=== PATIENT | female | born 1940 | race Caucasian/White ===

== ENCOUNTER → 2019-01-02 | Outpatient (CLI) | payer OTHER ==
[2019-01-02 16:19] LABS: Appearance, Urine Cloudy (Clear); Bilirubin, Urine Neg (Neg); Blood, Urine 3+ (Neg); Color, Urine Yellow (P-Yellow); Glucose Qualitative, Urine Neg (Neg); Ketones, Urine Neg (Neg); Leukocyte Esterase, Urine 3+ (Neg); Nitrite, Urine Neg (Neg); Protein, Urine 2+ (Neg); Specific Gravity, Urine 1.015 (1.003-1.022); Urobilinogen, Urine NORM (Normal)
[2019-01-02 16:46] LABS: White Blood Cells, Urine TNTC /hpf (0-5)
[2019-01-02 16:47] LABS: Bacteria Many /hpf; Squamous Epithelial Cells Few /hpf (Few)
== END | disposition home or self-care (01) ==
LOC: LAB 16:08 → LAB SHORT 16:08
PROVIDERS: Registered Nurse
DX: R30.9 Painful micturition, unspecified (principal)
CPT/HCPCS: 81001; 87077; 87086; 87186

== ENCOUNTER → 2019-08-23 | Outpatient (CLI) | payer OTHER | LOC: LAB EV 10:15 → LAB SHORT 10:15 | DX: R82.90 Unspecified abnormal findings in urine (principal) | CPT/HCPCS: 87077; 87086; 87186 ==

== ENCOUNTER → 2020-01-01 | Outpatient (CLI) | payer OTHER ==
[2020-01-01 15:29] LABS: Bilirubin, Urine Neg (Neg); Blood, Urine 1+ (Neg); Glucose Qualitative, Urine Neg (Neg); Ketones, Urine Neg (Neg); Leukocyte Esterase, Urine 2+ (Neg); Nitrite, Urine Neg (Neg); Protein, Urine Neg (Neg); Urobilinogen, Urine NORM (Normal)
[2020-01-01 15:49] LABS: Appearance, Urine Hazy (Clear); Color, Urine Yellow (P-Yellow)
[2020-01-01 15:50] LABS: Bacteria Many /hpf; Red Blood Cells, Urine 0-2 /hpf (0-2); Squamous Epithelial Cells Many /hpf (Few)
== END | disposition home or self-care (01) ==
LOC: LAB 13:07 → LAB SHORT 13:07
PROVIDERS: Family Medicine
DX: R35.0 Frequency of micturition (principal)
CPT/HCPCS: 81001

== ENCOUNTER → 2020-10-14 | Outpatient (CLI) | payer OTHER ==
[~2020-10-14] MED LIST: AMLODIPINE BESYL5 MG PO; ATOR10 PO; AZIT500 PO; BUSPIRONE HCL7.5 MG PO; CEFD300 PO; CIPR500 PO; FUROSEMIDE20 MG PO; HYDROCODONE-AC1 EAC7 PO; KLOR-CON 1010 MEQ PO; LOSARTAN POTAS100 MG PO; METOPROLOL TART25 MG PO; NEURONTIN300 MG PO; Nitrofurantoin100 M1 PO; OMEP20ER PO; TRAZ50 PO; ZOLOFT50 MG PO
[2020-10-14 11:55] LABS: Source, Urine Clean Catch
[2020-10-14 12:46] LABS: Leukocyte Esterase, Urine 1+ (Neg)
[2020-10-14 12:47] LABS: Appearance, Urine Hazy (Clear); Bacteria Many /hpf; Bilirubin, Urine Neg (Neg); Blood, Urine Neg (Neg); Color, Urine Yellow (P-Yellow); Glucose Qualitative, Urine Neg (Normal); Ketones, Urine Neg (Neg); Nitrite, Urine Neg (Neg); Protein, Urine Neg (Neg); Red Blood Cells, Urine Not Seen /hpf (0-2); Renal Epithelial Rare /hpf (0-Rare); Squamous Epithelial Cells Many /hpf (Few); Transitional Epithelial Cells Rare /hpf (0-Rare); Urobilinogen, Urine NORM (Normal)
== END | disposition home or self-care (01) ==
LOC: PLD 11:30
PROVIDERS: Family Medicine
DX: N39.0 Urinary tract infection, site not specified (principal)
CPT/HCPCS: 81001; 87086

== ENCOUNTER 2021-02-02 18:16 | Emergency (ER) | payer OTHER ==
[~2021-02-02] VITALS: Ht 172.7 cm; Wt 81.7 kg
[~2021-02-02 18:16] MED LIST changes: -CIPR500 PO
[2021-02-02 18:59] LABS: Source, Urine Clean Catch
[2021-02-02 19:03] LABS: Appearance, Urine Clear (Clear); Bilirubin, Urine Neg (Neg); Blood, Urine 1+ (Neg); Color, Urine Yellow (P-Yellow); Glucose Qualitative, Urine Neg (Neg); Ketones, Urine Neg (Neg); Leukocyte Esterase, Urine 1+ (Neg); Nitrite, Urine Neg (Neg); Protein, Urine 2+ (Neg); Urobilinogen, Urine NORM (Normal)
[2021-02-02 19:05] LABS: BASOPHILS ABSOLUTE AUTO 0.08 K/mm3 (0.00-0.23); BASOPHILS PERCENT AUTO 1 % (0-2); EOSINOPHILS ABSOLUTE AUTO 0.16 K/mm3 (0.00-0.68); EOSINOPHILS PERCENT AUTO 2 % (0-6); Hematocrit 47.7 % (33.0-51.0); Hemoglobin 16.3 g/dL (11.5-16.0); IMMATURE GRAN ABSOLUTE AUTO 0.03 K/mm3 (0.00-0.10); IMMATURE GRAN PERCENT AUTO 0 % (0-1); LYMPHOCYTES ABSOLUTE AUTO 1.29 K/mm3 (0.84-5.20); LYMPHOCYTES PERCENT AUTO 15 % (21-46); MONOCYTES ABSOLUTE AUTO 0.96 K/mm3 (0.16-1.47); MONOCYTES PERCENT AUTO 11 % (4-13); Mean Corpuscular HGB 31.2 pg (26.0-34.0); Mean Corpuscular HGB Conc 34.2 g/dL (31.5-36.5); Mean Corpuscular Volume 91 fL (80-100); Mean Platelet Volume 9.5 fL (9.1-12.4); NEUTROPHILS ABSOLUTE AUTO 6.21 K/mm3 (1.96-9.15); NEUTROPHILS PERCENT AUTO 71 % (41-73); Platelet Count 243 K/mm3 (150-400); RDW Coefficient Variation 13.1 % (11.7-14.2); RDW Standard Deviation 43.9 fL (35.1-46.3); Red Blood Cell Count 5.23 M/mm3 (3.80-5.20); White Blood Cell Count 8.73 K/mm3 (4.00-11.30)
[2021-02-02 19:09] LABS: Bacteria Mod /hpf; Squamous Epithelial Cells Few /hpf (Few)
[2021-02-02 19:21] LABS: Alanine Aminotransfer (ALT/SGP 24 U/L (12-78); Albumin, Blood 3.9 g/dL (3.4-5.0); Albumin/Globulin Ratio 0.8 (0.8-1.8); Alk Phos 73 U/L (50-136); Anion Gap 8 mmol/L (6-16); Aspartate Aminotrans (AST/SGOT 19 U/L (12-37); Bilirubin, Total 0.8 mg/dL (0.1-1.0); Blood Urea Nitrogen 14 mg/dL (8-24); Bun/Creatinine Ratio 21.2 (12.0-20.0); CO2, Blood 27 mmol/L (21-32); Calcium, Blood 9.4 mg/dL (8.5-10.1); Chloride, Blood 102 mmol/L (98-108); Creatinine, Blood 0.66 mg/dL (0.40-1.00); Globulin, Blood 4.6 g/dL (2.2-4.0); Glomerular Filtration Rate >60 (60-); Glucose, Blood 117 mg/dL (70-99); Potassium, Blood 3.8 mmol/L (3.5-5.5); Sodium, Blood 137 mmol/L (136-145); Total Protein, Blood 8.5 g/dL (6.4-8.2)
[2021-02-02] MEDS ORDERED: CIPR500 PO (19:52)
== END 2021-02-02 21:28 | disposition home or self-care (01) ==
LOC: ER 18:16
PROVIDERS: Emergency Medicine
DX: N39.0 Urinary tract infection, site not specified (principal); R55 Syncope and collapse; I11.0 Hypertensive heart disease with heart failure; I50.9 Heart failure, unspecified; E78.00 Pure hypercholesterolemia, unspecified; I25.10 Atherosclerotic heart disease of native coronary artery without angina pectoris; Z79.899 Other long term (current) drug therapy; Z88.0 Allergy status to penicillin; Z88.8 Allergy status to other drugs, medicaments and biological substances
CPT/HCPCS: 71046; 80053; 81001; 85025; 87077; 87086; 87186; 93005; 93010; 99284-25; A9270

== ENCOUNTER → 2021-02-24 | Outpatient (CLI) | payer OTHER ==
[~2021-02-24] MED LIST changes: +CIPR500 PO
== END ==
LOC: LAB SHORT 17:38
DX: L92.3 Foreign body granuloma of the skin and subcutaneous tissue (principal); Z71.89 Other specified counseling; B95.62 Methicillin resistant Staphylococcus aureus infection as the cause of diseases classified elsewhere; Z88.0 Allergy status to penicillin; Z88.8 Allergy status to other drugs, medicaments and biological substances
CPT/HCPCS: 87070; 87077; 87147; 87186; 87205

== ENCOUNTER → 2021-11-23 | Outpatient (CLI) | payer OTHER | END | disposition home or self-care (01) | LOC: LAB SHORT 12:40 | DX: R35.0 Frequency of micturition (principal) | CPT/HCPCS: 87086 ==

== ENCOUNTER → 2022-01-31 | Outpatient (CLI) | payer OTHER | END | disposition home or self-care (01) | LOC: LAB 10:59 → LAB SHORT 10:59 | DX: N39.0 Urinary tract infection, site not specified (principal) | CPT/HCPCS: 87086 ==

== ENCOUNTER → 2022-10-25 | Outpatient (CLI) | payer OTHER | LOC: LAB SHORT 12:10 → LAB 12:10 | DX: R30.0 Dysuria (principal) | CPT/HCPCS: 87086 ==

== ENCOUNTER 2023-05-28 15:06 | Inpatient (IN) | payer OTHER ==
[~2023-05-28] VITALS: Ht 170.2 cm; Wt 86.3 kg
[2023-05-28 15:33] LABS: BASOPHILS ABSOLUTE AUTO 0.05 K/mm3 (0.00-0.23); BASOPHILS PERCENT AUTO 0 % (0-2); EOSINOPHILS ABSOLUTE AUTO 0.07 K/mm3 (0.00-0.68); EOSINOPHILS PERCENT AUTO 1 % (0-6); Hematocrit 43.1 % (33.0-51.0); Hemoglobin 14.7 g/dL (11.5-16.0); IMMATURE GRAN ABSOLUTE AUTO 0.08 K/mm3 (0.00-0.10); IMMATURE GRAN PERCENT AUTO 1 % (0-1); LYMPHOCYTES ABSOLUTE AUTO 0.39 K/mm3 (0.84-5.20); LYMPHOCYTES PERCENT AUTO 3 % (21-46); MONOCYTES ABSOLUTE AUTO 1.51 K/mm3 (0.16-1.47); MONOCYTES PERCENT AUTO 11 % (4-13); Mean Corpuscular HGB 30.8 pg (26.0-34.0); Mean Corpuscular HGB Conc 34.1 g/dL (31.5-36.5); Mean Corpuscular Volume 90 fL (80-100); Mean Platelet Volume 10.7 fL (9.1-12.4); NEUTROPHILS ABSOLUTE AUTO 11.83 K/mm3 (1.96-9.15); NEUTROPHILS PERCENT AUTO 85 % (41-73); Platelet Count 235 K/mm3 (150-400); RDW Coefficient Variation 14.8 % (11.7-14.2); RDW Standard Deviation 49.5 fL (35.1-46.3); Red Blood Cell Count 4.77 M/mm3 (3.80-5.20); White Blood Cell Count 13.93 K/mm3 (4.00-11.30)
[2023-05-28 15:52] LABS: Albumin, Blood 3.4 g/dL (3.4-5.0); Albumin/Globulin Ratio 0.8 (0.8-1.8); Bilirubin, Total 0.9 mg/dL (0.1-1.0); Bun/Creatinine Ratio 36.2 (12.0-20.0); Calcium, Blood 9.8 mg/dL (8.5-10.1); Creatinine, Blood 1.05 mg/dL (0.40-1.00); Globulin, Blood 4.5 g/dL (2.2-4.0); Total Protein, Blood 7.9 g/dL (6.4-8.2)
[2023-05-28 17:27] LABS: Source, Urine Straight Cath
[2023-05-28 17:35] LABS: Appearance, Urine Hazy (Clear); Bilirubin, Urine Neg (Neg); Blood, Urine 3+ (Neg); Color, Urine Yellow (P-Yellow); Glucose Qualitative, Urine Neg (Neg); Ketones, Urine 2+ (Neg); Leukocyte Esterase, Urine 1+ (Neg); Nitrite, Urine Pos (Neg); Protein, Urine 2+ (Neg); Specific Gravity, Urine 1.015 (1.003-1.022); Urobilinogen, Urine NORM (Normal)
[2023-05-28 18:16] LABS: Bacteria Many /hpf; Hyaline Casts 0-2 /lpf (0-2); Squamous Epithelial Cells Mod /hpf (Few); Transitional Epithelial Cells Rare /hpf (0-Rare); White Blood Cells, Urine 25-50 /hpf (0-5)
[2023-05-28] MEDS ORDERED: ZYRTEC10 M2 PO (20:07)
[2023-05-28 20:57] VITALS: BP 182/30
[2023-05-28 21:09] VITALS: BP 150/85
--- NOTE | 2023-05-28 23:29 | NUR ---
NOTIFIED BY DEPUTY REGISTER OF DEEDS THAT PT HAD BRIEF SECOND DEGREE HB @ 48 BPM. PT ASYMPTOMATIC DENIES CP/DISCOMFORT SOB. HOSPITALIST NOTIFIED AND INSTRUCTIONS GIVEN TO CONTINUE MONITORING AND IF IT REOCCURS AND IT SUSTAINED TO ORDER CARDIOLOGY CONSULT FOR TOMORROW.
--- NOTE | 2023-05-29 00:08 | NUR ---
NOTIFIED BY JOB SITE SUPERVISOR THAT PT IS SUSTAINING 2ND DEGREE HB TYPE 2 HR IN 50'S. PT REMAINS ASYMPTOMATIC. CARDIOLOGY CONSULT PUT IN PER DR SEGURA PRIOR INSTRUCTIONS. DR SANTANA NOTIFIED AND INSTRUCTIONS GIVEN TO CONTINUE MONITORING FOR CHANGE IN PT CONDITION.
[2023-05-29 01:10] VITALS: BP 169/47
--- NOTE | 2023-05-29 01:36 | NUR ---
NOTIFIED BY PCU SEWING TEACHER THAT PT MAINTAINING SECOND DEGREE HB TYPE 2 AND HR IS DROPPING INTO LOW TO MID 30'S AT TIMES AND PT MORE APPROPRIATE FOR PCU FOR CLOSER OBSERVATION. HOSPITALIST NOTIFIED AND AGREED WITH ASSESSMENT AND TRANSFER ORDER PLACED TO TRANSFER PT TO PCU. PT TRANSFERRED TO PCU WITH SEWING TEACHER @ 0110 AND REPORT GIVEN TO PCU NURSE TO ASSUME CARE OF PT. PT HAD NO BELONGINGS. FAMILY NOTIFIED OF CHANGE OF ROOM.
[2023-05-29 03:00] VITALS: BP 144/36
[2023-05-29 04:30] LABS: BASOPHILS ABSOLUTE AUTO 0.07 K/mm3 (0.00-0.23); BASOPHILS PERCENT AUTO 1 % (0-2); EOSINOPHILS ABSOLUTE AUTO 0.34 K/mm3 (0.00-0.68); EOSINOPHILS PERCENT AUTO 3 % (0-6); Hematocrit 40.4 % (33.0-51.0); Hemoglobin 13.7 g/dL (11.5-16.0); IMMATURE GRAN ABSOLUTE AUTO 0.05 K/mm3 (0.00-0.10); IMMATURE GRAN PERCENT AUTO 1 % (0-1); LYMPHOCYTES ABSOLUTE AUTO 0.55 K/mm3 (0.84-5.20); LYMPHOCYTES PERCENT AUTO 5 % (21-46); MONOCYTES PERCENT AUTO 18 % (4-13); Mean Corpuscular HGB Conc 33.9 g/dL (31.5-36.5); Mean Corpuscular Volume 91 fL (80-100); Mean Platelet Volume 10.5 fL (9.1-12.4); NEUTROPHILS ABSOLUTE AUTO 7.67 K/mm3 (1.96-9.15); NEUTROPHILS PERCENT AUTO 72 % (41-73); Platelet Count 199 K/mm3 (150-400); RDW Coefficient Variation 15.1 % (11.7-14.2); RDW Standard Deviation 50.5 fL (35.1-46.3); Red Blood Cell Count 4.42 M/mm3 (3.80-5.20); White Blood Cell Count 10.58 K/mm3 (4.00-11.30)
[2023-05-29 04:51] LABS: Albumin, Blood 2.9 g/dL (3.4-5.0); Albumin/Globulin Ratio 0.7 (0.8-1.8); Bun/Creatinine Ratio 46.7 (12.0-20.0); Calcium, Blood 9.3 mg/dL (8.5-10.1); Creatinine, Blood 0.73 mg/dL (0.40-1.00); Globulin, Blood 4.1 g/dL (2.2-4.0); Magnesium, Blood 1.8 mg/dL (1.6-2.4); Potassium, Blood 3.6 mmol/L (3.5-5.5)
--- NOTE | 2023-05-29 06:45 | NUR ---
Transfer/ End of shift note. Pt transferred from Medical to U4 at approx. 0100. Pt had noted 2nd Degree heart block with HR in the 30s. Pt has been asymptomatic. Pt has had waxing mentation. Pt is A/O x2-3. Some refusals of care and irritation. Medical RN notified family of transfer. phoned at 0330 to notify of increase in wheezing. IVF dc'd. also notified of multiple runs of V tach, Pt asymptomatic. PRN EKG was completed this am
[2023-05-29 08:40] VITALS: BP 136/46
--- NOTE | 2023-05-29 11:14 | NUR ---
MRI SCREENING: Form completed over the phone with patient's daugter (POA) and sent to MRI department.
[2023-05-29 12:25] VITALS: BP 152/32
--- NOTE | 2023-05-29 13:25 | NUR ---
PROVIDER PHONE CALL: Dr Metcalf notified of pt's minimal UOP from purewick as well as NPO status. See new orders.
[2023-05-29] MEDS ORDERED: TRIDERM28.4 GM TOP (13:56)
[2023-05-29] MEDS ORDERED: METO25 PO (13:57)
[2023-05-29] MEDS ORDERED: ATOR10 PO (13:57)
[2023-05-29] MEDS ORDERED: SERT50 PO (13:57)
--- NOTE | 2023-05-29 14:49 | NUR ---
Met with pt's daughter Claudia at bedside. We then talked privately, and Claudia reports, "That's not my mother", regarding pt's current mental and physical status. She states the pt lives alone with only a director of casework department caregiver. However, today the pt is unable to recognize or recall her daughter's name, or get OOB unassisted. Claudia brought pt's advance directive which expresses she would not want tube feedings or ventilator support to artificially sustain her life. Clauida is pt's POA, and she requested we change her code status to DNR. Received t/o for this from Dr. Metcalf. Claudia also states her mom would not want to live in this state, but also realizes it's too soon to make any finalized decision, and plans to return tomorrow to check in with Dr. Metcalf and pt. Palliative care will remain available.
[2023-05-29 14:53] LABS: U Amphetamine Screen Not Detected; U Barbituate Screen Not Detected; U Benzodiazapine Screen Not Detected; U Buprenorphine Screen Not Detected; U Cannabinoids Screen Not Detected; U Cocaine Screen Not Detected; U Methadone Screen Not Detected; U Methamphetamine Screen Not Detected; U Opiates Screen Not Detected; U Oxycodone Screen Not Detected; U Phencyclidine Screen Not Detected; U Propoxyphene Screen Not Detected
--- NOTE | 2023-05-29 15:02 | NUR ---
PT TO MRI: on stretcher with transportation logistics internship. tele and spO2 monitoring temporarily discontinued for test. DNR wristband applied right wrist prior to transport
--- NOTE | 2023-05-29 15:25 | NUR ---
PT BACK FROM MRI
[2023-05-29 15:54] VITALS: BP 155/36
--- NOTE | 2023-05-29 18:07 | NUR ---
SHIFT SUMMARY: Pt more alert and responsive this afternoon. She is still confused and oriented only to self. MRI completed today. Daughter at bedside; code status changed to DNR. IVF restarted due to UOP of 30 mls today.
[2023-05-29 20:00] VITALS: BP 154/43
[2023-05-30] VITALS (7 sets, daily range): BP systolic 155–176; BP diastolic 33–42
--- NOTE | 2023-05-30 06:13 | NUR ---
SHIFT SUMMARY PT REMAINS A&O X2; TO SELF AND PERSON. PT UNABLE TO ANSWER OTHER ORIENTATION QUESTIONS. PT SPEECH GARBLED AT TIMES OR INCOHERENT OR DO NOT MAKE SENSE TO WHAT IS BEING ASKED. EXPRESSIVE APHASIA PRESENT. Q4 NEURO CHECKS UNCHANGED FROM INITIAL ASSESSMENT. PT PUPILS SLUGGISH, PT NOT TRACKING. PT DOES FOLLOW MOST COMMANDS. STRENGTH INTACT BLE AND BUE, ALTHOUGH IS WEAKENED. VSS; ALTHOUGH OF NOTE SBP ELEVATED SOME AT 150 - 160'S. HR REMAINS 40 - 50'S W/2 DEGREE HB TYPE II. PT DENIES SYMPTOMS. PT REMAINS ON RA, SPO2 95%; DENIES SOB, NO DIFFICULTY BREATHING NOTED. THIS RN DOES NOT IRREGULAR, SHALLOW BREATHING. PT RESTED ON AND OFF THROUGOUT SHIFT. PT REPOSITIONED Q2 OR PRN, ATTENDS CHANGED Q2 OR PRN. PUREWICK ALSO IN PLACE. NO BM THIS SHIFT. PT DOES NOT USE CALL LIGHT AND NOT ALWAYS ABLE TO MAKE NEEDS KNOWN. ROUNDING COMPLETED TO ENSURE NEEDS MET. LR INFUSING PER EMAR. REDDENED AREA ON COCCYX AREA, MEPILEX CHANGED AND IN PLACE THIS SHIFT. ORAL CARE ATTEMPTED, PT BECAME IRRITATED AND DECLINED. EDUCATION PROVIDED ON IMPORTANCE, PT STILL DECLINED. WILL UPDATE ONCOMING RN
[2023-05-30 06:35] LABS: BASOPHILS ABSOLUTE AUTO 0.08 K/mm3 (0.00-0.23); BASOPHILS PERCENT AUTO 1 % (0-2); EOSINOPHILS ABSOLUTE AUTO 0.34 K/mm3 (0.00-0.68); EOSINOPHILS PERCENT AUTO 5 % (0-6); Hematocrit 34.9 % (33.0-51.0); Hemoglobin 11.9 g/dL (11.5-16.0); IMMATURE GRAN ABSOLUTE AUTO 0.03 K/mm3 (0.00-0.10); IMMATURE GRAN PERCENT AUTO 0 % (0-1); LYMPHOCYTES ABSOLUTE AUTO 0.59 K/mm3 (0.84-5.20); LYMPHOCYTES PERCENT AUTO 8 % (21-46); MONOCYTES ABSOLUTE AUTO 1.56 K/mm3 (0.16-1.47); MONOCYTES PERCENT AUTO 21 % (4-13); Mean Corpuscular HGB 31.2 pg (26.0-34.0); Mean Corpuscular HGB Conc 34.1 g/dL (31.5-36.5); Mean Corpuscular Volume 91 fL (80-100); Mean Platelet Volume 10.9 fL (9.1-12.4); NEUTROPHILS ABSOLUTE AUTO 4.88 K/mm3 (1.96-9.15); NEUTROPHILS PERCENT AUTO 65 % (41-73); Platelet Count 190 K/mm3 (150-400); RDW Coefficient Variation 15.3 % (11.7-14.2); RDW Standard Deviation 51.3 fL (35.1-46.3); Red Blood Cell Count 3.82 M/mm3 (3.80-5.20); White Blood Cell Count 7.48 K/mm3 (4.00-11.30)
[2023-05-30 07:14] LABS: Albumin, Blood 2.4 g/dL (3.4-5.0); Albumin/Globulin Ratio 0.7 (0.8-1.8); Bilirubin, Total 0.9 mg/dL (0.1-1.0); Bun/Creatinine Ratio 46.9 (12.0-20.0); Calcium, Blood 8.9 mg/dL (8.5-10.1); Creatinine, Blood 0.7 mg/dL (0.40-1.00); Globulin, Blood 3.5 g/dL (2.2-4.0); Potassium, Blood 3.6 mmol/L (3.5-5.5); Total Protein, Blood 5.9 g/dL (6.4-8.2)
--- NOTE | 2023-05-30 11:04 | NUR ---
AM NOTE: PATIENT ALERT TO SELF AND FAMILY. ABLE TO TELL ME FIRST NAME. WORD SALAD AND EXPRESSICE APHASIA. PATIENT GETTING FRUSTERATED WITH WORDS NOT COMING OUT RIGHT. PUPILS EQUAL AND REACTIVE. NOT ABLE TO FOLLOW COMMANDS TO TRACK FINGER. NO FACIAL DROOP NOTED THIS AM. FOLLOWING COMMANDS TO OPEN MOUTH, STICK TONGUE OUT, SMILE AND RAISE EYEBROWS. DENIES NUMBNESS/TINGLING. FOLLOWING SIMPLE COMMANDS SUCH SQUEEZING HANDS, AND WIGGLING TOES. PATIENT FRUSTERATED WITH MOST CARES AND CONSTANTLY SAYING NO THIS AM. SPEECH THERAPY ATTEMPTED TO SEE EARLY THIS AM, PATIENT NOT COOPERATIVE. SPEECH ABLE TO COME BACK AND PATIENT COOPERATIVE WITH FAMILY AT BEDSIDE. SEE SPEECH ORDERS. ABLE TO TAKE MEDS CRUSHED IN APPLESAUCE. PT/OT ORDERS IN PLACE. ON ROOM AIR SATING MID-HIGH 90'S. EVEN BREATHING. RR 20-24. LUNGS SOUNDING CLEAR AND DIM IN BASES. TELE SHOWING 2ND DEGREE AV BLOCK. PATIENT IN 3RD DEGREE HEART BLOCK FOR [address] ALEXANDRE CALLED AND UPDATED. DENIES CHEST PAIN/PRESSURE/PALPITATIONS. BP STABLE. HR 40-50'S. ON LR INFUSING PER EMAR. POWERGLIDE PLACED TO LEFT UPPER ARM. BOWEL TONES PRESENT. PUREWICK IN PLACE. URINE GINGER IN COLOR. ATTENDS CLEAN AND DRY. POWDER APPLIED TO SKIN FOLDS AND UNDER BREASTS. DR. ALEXANDRE IN TO DISCUSS PLAN OF CARE WITH FAMILY AND PALLIATIVE CARE. DAUGHTER AND GRANDDAUGHTER REMAIN AT BEDSIDE. Q2 TURNING. CALL LIGHT IN REACH.
--- NOTE | 2023-05-30 11:48 | NUR ---
AFTERNOON NEURO REMAINS UNCHANGED FROM THIS AM ASSESSMENT. PLAN TO WORK WITH PT THIS AFTERNOON.
--- NOTE | 2023-05-30 16:46 | NUR ---
SHIFT SUMMARY: SPOKE WITH PHYSICAL THERAPY. PLAN FOR EVAL IN AM. DAUGHTER HERIBERTO CALLED AND UPDATED. NO ACUTE CHANGES. PATIENT REMAINS ALERT TO SELF AND TALKING WITH STAFF. AT TIMES EXPRESSIVE APHASIA. VERY SLIGHT RIGHT FACIAL DROOP NOTED WHEN PATIENT IS SLEEPING. SLEEPING WITH MOUTH OPEN. REMAINS ON ROOM AIR. LESS AGGITATED WITH CARES THROUGHOUT THE DAY. TELE REMAINS 2ND DEGREE AV BLOCK. 3 MIN PERIOD THIS AM OF 3RD DEGREE HB, SEE SAVED STRIPS IN ELECTRONIC CHART. BP REMAINS STABLE. HR 40-60'S. DENIES CHEST PAIN/PRESSURE. ZOLL REMAINS AT BEDSIDE. LR INFUSING PER EMAR. EATING SMALL AMOUNT OF SOFT/PUREE LIKE FOODS, APPLESAUCE, PEAR SAUCE AND PUDDING. DRINKING WATER. PUREWICK IN PLACE AND CHANGED THROUGHOUT SHIFT. MINIMAL URINE OUTPUT OF 100ML AND 1 UNMEASURED VOID. WEARING ATTENDS. MEPILEX COVERING EXCORIATION ON COCCYX. BILATERAL BREAST FOLDS YEASTY AND NEEDING CLEANED/POWDERED THROUGHOUT SHIFT. PILLOW CASE PLACED UNDER RIGHT BREAST TO HELP CONTROL MOISTURE. Q2 TURNING AND NEEDED. BED ALARM IN PLACE. CALL LIGHT IN REACH, PATIENT LISTENING TO MUSIC, SITTING UPRIGHT AT THIS TIME.
--- NOTE | 2023-05-30 21:39 | NUR ---
ASSUMED CARE: Assumed care at 1900. Pt wakes to voice, oriented to self but cannot tell me where she is or why she is here. She is pleasant and cooperative. Mild expressive aphasia noted. Moves all extremities, bilateral leg weakness noted. Drift on R arm, L arm normal strength. She has a Right gaze preference, but was able to look all the way to the left when prompted. Slight R facial droop noted. She is in a 2nd degree type 2 heart block, rates mostly in the 40s-50s. She has a wide pulse pressure, but adequate MAP. She is tachypneic, though she denies shortness of breath. Breath sounds diminished throughout. No ignition policy discussed with patient, though she does not have any possible ignition sources and is not oriented.
[2023-05-31 03:22] VITALS: BP 173/42
[2023-05-31 06:30] LABS: BASOPHILS ABSOLUTE AUTO 0.08 K/mm3 (0.00-0.23); BASOPHILS PERCENT AUTO 1 % (0-2); EOSINOPHILS PERCENT AUTO 6 % (0-6); Hematocrit 35.7 % (33.0-51.0); IMMATURE GRAN ABSOLUTE AUTO 0.02 K/mm3 (0.00-0.10); IMMATURE GRAN PERCENT AUTO 0 % (0-1); LYMPHOCYTES ABSOLUTE AUTO 0.43 K/mm3 (0.84-5.20); LYMPHOCYTES PERCENT AUTO 6 % (21-46); MONOCYTES ABSOLUTE AUTO 1.28 K/mm3 (0.16-1.47); MONOCYTES PERCENT AUTO 18 % (4-13); Mean Corpuscular HGB 30.9 pg (26.0-34.0); Mean Corpuscular HGB Conc 33.6 g/dL (31.5-36.5); Mean Corpuscular Volume 92 fL (80-100); NEUTROPHILS ABSOLUTE AUTO 4.81 K/mm3 (1.96-9.15); NEUTROPHILS PERCENT AUTO 69 % (41-73); Platelet Count 201 K/mm3 (150-400); RDW Coefficient Variation 15.3 % (11.7-14.2); RDW Standard Deviation 51.8 fL (35.1-46.3); Red Blood Cell Count 3.88 M/mm3 (3.80-5.20); White Blood Cell Count 7.02 K/mm3 (4.00-11.30)
--- NOTE | 2023-05-31 06:40 | NUR ---
SHIFT SUMMARY: Neuro status unchanged for most of the night. She slept for several hours at the beginning of the shift, but has been restless for much of the night. She complained of a headache around 0330 and was medicated with tylenol. She went to sleep shortly after taking tylenol and appeared comfortable. At 0500, she was more lethargic than earlier in the night. Still arousable, but more drowsy. Oriented to self only, has to be reoriented frequently to place and situation, but she is pleasant and cooperative.
[2023-05-31 07:01] LABS: Albumin, Blood 2.3 g/dL (3.4-5.0); Albumin/Globulin Ratio 0.6 (0.8-1.8); Bilirubin, Total 0.9 mg/dL (0.1-1.0); Bun/Creatinine Ratio 42.6 (12.0-20.0); Calcium, Blood 8.8 mg/dL (8.5-10.1); Creatinine, Blood 0.61 mg/dL (0.40-1.00); Globulin, Blood 3.6 g/dL (2.2-4.0); Potassium, Blood 3.6 mmol/L (3.5-5.5); Total Protein, Blood 5.9 g/dL (6.4-8.2)
[2023-05-31 07:42] VITALS: BP 181/49
[2023-05-31 09:40] VITALS: BP 151/47
--- NOTE | 2023-05-31 11:35 | NUR ---
Review of pt with Dr Cochran and nursing. Met with daughter and grandaughter to review pt needs. Daughter tearfull from caregiver stress. She relays her mother has not been easy to deal with in her younger years. They understand her prognosis. And have agreed to comfort care. Review with doctor Cochran her medication needs for cardiac care. Discussed with farm or ranch animal caretaker the financial stresses relayed to me by family. Will see placement and assess pt stability for transfer.
--- NOTE | 2023-05-31 15:41 | NUR ---
PT TRANSITIONE TO COMFORT CARE, DAUGHTER WAS ABLE TO DISCUSS PLAN WITH PALLIATIVE CARE THIS MORNING. PT WAS ABLE TO WORK WITH OCCUPATIONAL THERAPY AND SPEECH THERAPIST, REFUSED MEALS OFFERED ENSURE AND WAS ABLE TO FINISH. PT REFUSED CRUSHED MEDS WITH APPLESAUCE. PT WORKED WITH PHYSICAL THERAPIST ABLT TO STAND AND TRANSFER TO RECLINER VIA WALKER 1PA. PUREWICK REMAINED IN PLACE. MEDICATION CHANGES PER PALLIATIVE CARE NURSE. REPORT GIVEN TO WHITLEY WRIGHT FOR TRANSFER OF CARE
--- NOTE | 2023-05-31 16:17 | NUR ---
Review of comfort plan with physcian and nursing. pt continue to decline in her swallow and ability to participate. Medication adjust per physcian orders and comfor care medications started. Goal is to prevent suffering from poor perfussion and air hunger.
--- NOTE | 2023-05-31 18:32 | NUR ---
END OF SHIFT THIS RN IN CARE OF PT SINCE APPROX 154. PT COMFORT CARE, SLEEPING IN RECLINER UPON CARE ASSUMPTION. PT THEN AWAKE, ASSISTED TO BSC & BACK TO BED W/ GB & 2 PERSON MAX ASSIST. PT DENYING PAIN/DISCOMFORT OR FURTHER NEEDS.
--- NOTE | 2023-06-01 04:04 | NUR ---
SHIFT SUMMARY. PT ARRIVED ON UNIT EARLY IN SHIFT. PCU TRANSFER. PT IS AOX2-3, VERY PLEASANT AND COOPERATIVE WITH CARE. COMFORT CARE ASSESSMENTS COMPLETED ON SCHEDULE WITHOUT DIFFICULTY. SKIN ASSESSMENT COMPLETED ON TRANSFER WITH ASSISTANCE FROM ARLENE CRISTOBAL RN. REMARKABLE FOR SOME SCATTERED AREAS OF REDNESS, MEPILEXES IN PLACE FOR PREVENTION. SEE SKIN ASSESSMENT FOR FURTHER DETAILS. MICONAZOLE PRESCRIBED BID. IV WAS ACCIDENTALLY PULLED DURING TRANSFER PROCESS IN PCU. RECEIVED ORDER FROM DR SANTANA FOR NO IV ACCESS ORDER. PT IS CONTINENT THUS FAR. HEAVY 2 PERSON TRANSFER TO THE BEDSIDE COMMODE PT IS VERY WEAK. PER REPORT PLAN IS FOR PT TO BE DISCHARGED TO SNF ON HOSPICE CARE. NO COMPLAINTS OF PAIN THIS SHIFT. PT HAS NOT SLEPT MUCH THIS SHIFT AND HAS BEEN WATCHING TV. DOES NOT USE CALL LIGHT THUS FAR. BED LOCKED IN LOWEST POSITION.
--- NOTE | 2023-06-01 11:43 | NUR ---
Spiritual Care Visit. Pt. is awake in bed when she welcomes my visit. Pt. displays evidence of pleasant confusion, yet seems to understand my questions. Began to facilitate a life review when family members arrived. After introductions this trimmer operator three knife excused himself so the family could visit. Pt. and family verbalized graitude for the spiritual care visit and welcomed this trimmer operator three knife to return.
--- NOTE | 2023-06-01 13:56 | NUR ---
pt resting comfortably. family lookin at hopsice plan and placement.
--- NOTE | 2023-06-01 14:34 | NUR ---
Pt's family report pt does not tolerate morphine well, state it isn't a true allergy, but causes upset stomach and behavior changes. She has taken oxycodone for pain even in the recent past, so Dr. Metcalf agreeable to d/c morphine, add oxycodone liquid. It's 1 to 1 concentration of Roxanol.
--- NOTE | 2023-06-01 17:54 | NUR ---
SHIFT SUMMARY: GISELLE IS ALERT AND ORIENTED X 2-3. COMFORT CARE. SHE IS ABLE TO MAKE HER NEEDS KNOWN. SHE HAS COMPLAINED OF NECK PAIN THIS SHIFT WHICH WAS ADDRESSED WITH MEDICATIONS PER MAR. SHE REPORTED THE MOST RELIEF WITH THE LIDOCAINE PATCH AND NECK PILLOW. SHE HAS BEEN INCONTINENT OF BLADDER THIS SHIFT, ATTENDS IN PLACE. SHE HAS TOLERATED PO INTAKE WELL. FAMILY AT BEDSIDE TODAY, DISCUSSING DISCHARGE PLAN WITH CARE MANAGEMENT. Q2 TURNING AND REPOSITIONING. SHE IS LYING IN BED WITH THE CALL LIGHT IN REACH. WCTM UNTIL REPORT IS GIVEN TO PARKING ENFORCEMENT OFFICER RN.
[2023-06-01 22:51] VITALS: BP 165/70
[2023-06-01 22:56] VITALS: BP 165/70
--- NOTE | 2023-06-01 23:02 | NUR ---
ASSEMBLER SURGICAL GARMENT WALKED INTO PT BEING ON GROUND AT APPROXIMATELY 2220. PERFORMED ASSESSMENT WITH ASSISTANCE FROM COLTON BRINK RN. NO NEW ABNORMALITIES, INJURIES, ORIENTATION UNCHANGED. REPORTS BEING COMFORTABLE ONCE BEING PLACED BACK INTO BED. DESCIBRES EVENT BEING SOFT SHE TRIED TO SLOW HERSELF FROM SLIPPING OUT OF BED. BED ALARM IN PLACE AFTER FALL. EDUCATED FURTHER HEALTH AND SAFETY CONSULTANT LIGHT USE. CALLED TO NOTIFY PIERCE ERWIN ORDERS AT THIS TIME. NOTIFIED AIYANA HECTOR RN. WILL CONTINUE TO MONITOR.
--- NOTE | 2023-06-02 04:23 | NUR ---
SHIFT SUMMARY. SHIFT HAS BEEN UNREMARKABLE OUTSIDE OF FALL EARLY IN SHIFT FROM BED. SEE RELATED NOTE FOR DETAILS. PT COMPLAINED OF PAIN EARLY IN SHIFT WHICH HAS BEEN MANAGED VIA REPOSITIONING AND EMAR. NO FURTHER COMPLAINTS OF PAIN AFTER THE INITAL BOUT. PT HAS SLEPT THROUGH MUCH OF SHIFT FOR SECOND HALF. COMFORT CARE ASSESSMENTS COMPLETED Q4 PER ORDER. DOES NOT USE CALL LIGHT DESPITE EDUCATION. BED LOCKED IN LOWEST POSITION.
--- NOTE | 2023-06-02 11:11 | NUR ---
Daughter in to visit showing stress over plan of care. Reviewed with her the need to get placement for her mother. Antonella is showing great strain. She feels dumped on by her mother. She has tried several time to get her to apply for assistance. We reveiwed her finaces and stategies to taker her home or get her to a retirement or with some caregivers. We reviewed the assistance of hospice. Advised her to call [facility] as soon as possible.
--- NOTE | 2023-06-02 14:26 | NUR ---
Spiritual Care Attempt. Pt. is a comfort care Pt. and is somnolent. Since no family were present, this trailer tank truck driver prayed for the Pt.
[2023-06-02] MEDS ORDERED: KINDERMED160 MG/5 M PO (14:33)
[2023-06-02] MEDS ORDERED: ACET120S PR (14:33)
[2023-06-02] MEDS ORDERED: ATROPINE SULFATE2 M1 SL (14:34)
[2023-06-02] MEDS ORDERED: Haldol Dec50 MG/1 ML PO (14:34)
[2023-06-02] MEDS ORDERED: IPRAT-ALBUT 0.5-3 ML INH (14:34)
[2023-06-02] MEDS ORDERED: LORA1 PO (14:35)
[2023-06-02] MEDS ORDERED: LIDO700A20 TOP (14:35)
[2023-06-02] MEDS ORDERED: LEVOFLOXACIN750 MG PO (14:35)
[2023-06-02] MEDS ORDERED: MICONAZOLE NIT130 GM TOP (14:36)
--- NOTE | 2023-06-02 19:24 | NUR ---
SHIFT SUMMARY PATIENT WITH INCREASED RESPIRATIONS UP TO 30 TODAY, PATIENT DENIES SHORTNESS OF BREATH BUT DOES STATE SHE HAS SOME ANXIETY AND PAIN, MEDICATED PER EMAR. Q2 TURNING PROVIDED. PATIENT GOT UP TO COMMODE WITH 2 PERSON ASSIST AND WALKER BUT NEEDED 3 PEOPLE HELPING HER BACK TO BED AFTER GETTING DIZZY ON COMMODE. O2 SAT RESTING WAS 88% ROOM AIR, PATIENT PLACED ON 2LPM NC AND SATTING AT 92%, BED ALARM ON. PATIENT DOES NOT USE CALL LIGHT. FREQUENT ORAL LIQUIDS OFFERED. PATIENT LIKES CHOCOLATE SHAKES AND LEMONADE OR ICE WATER. VERY LITTLE APPETITE TO DAY.
--- NOTE | 2023-06-03 05:24 | NUR ---
SHIFT SUMMARY PT IS A&O4, BEDREST DUE TO WEAKNESS, COMFORT CARE ORDERS, PRN PAIN MEDICATION GIVEN FOR BACK AND NECK PAIN, ATIVAN X1 FOR ANXIETY, FIRE SAFETY MITIGATION EDUCATION PROVIDED, NO ACUTE OVERNIGHT EVENTS, CONTINUE POC
--- NOTE | 2023-06-03 16:30 | NUR ---
COMFORT CARE SHIFT SUMMARY PATIENT IS ALERT BUT NOT ORIENTED. PATIENT HAS HAD NO ACUTE EVENTS THIS SHIFT. PATIENT HAS COMPLAINED OF PAIN THIS SHIFT, MEDICATED PER EMAR. THIS RN AND HOME ORGANIZER USED LIFT TO HELP PATIENT TO COMMODE. PATIENT VOIDED WITHOUT COMPLAINT IN BSC. PATIENT COMPLAINS OF BEDPAN USE. PATIENTS DAUGHTER HAS BEEN VISITING OFF AND ON. PATIENT HAS NOT COMPLAINED OF SOB, NAUSEA OR VOMITTING THIS SHIFT. BED IN LOCKED AND LOWEST POSITION. CALL LIGHT IN PLACE.
--- NOTE | 2023-06-04 03:12 | NUR ---
PT EXPERIENCING SEVERE ITCHING. MD NOTIFIED, SEE EMAR
--- NOTE | 2023-06-04 04:02 | NUR ---
SHIFT SUMMARY PT IS ALERT AND ORIENTED X1-2. FORGETFUL, CALM AND COOPERATIVE. TREATED PAIN PER EMAR. PT REPORTED SEVERE ITCHING THAT STARTED EARLIER IN THE DAY. PLS SEE PRN ORDERS. NO ACUTE CHANGES THIS SHIFT. PT ATTEMPTED TO URINATE IN BED [facility] AND BRIEF BUT IS UNABLE. I ASKED IF SHE HAD CONCIDERED A SPAULDING CATHETER FOR COMFORT. PT STATED THAT SHE WOULD LIKE TO DISCUSS WITH DAUGHTER FIRST. TREATED PAIN PER EMAR. Q2-3 HOUR REPOSITIONING.
--- NOTE | 2023-06-04 16:59 | NUR ---
COMFORT CARE SUMMARY PATIENT IS ALERT BUT NOT ORIENTED. PATIENT HAS BEEN MEDICATED FOR PAIN ONCE. PATIENT HAS NOT COMPLAINED OF SOB, NAUSEA, PATIENT LOST HER APPEAL AND IS BEING DISCHARGED TOMORROW BEFORE NOON.
--- NOTE | 2023-06-04 20:29 | NUR ---
PT SEEMS TO BE MORE WITHDRAWN THAN LAST NIGHT. SHE IS REQUIRING INSTRUCTION TO OPEN AND CLOSE MOUTH TO DRINK. SHE IS UNABLE TO FOCUS ON MY WORDS AND HARD TO REDIRECT. ITCHING IS SEVERE. TREATED PER EMAR
--- NOTE | 2023-06-05 04:35 | NUR ---
SHIFT SUMMARY PT IS ALERT AND ORIENTED X1-2. FORGETFUL, CALM AND COOPERATIVE. TREATED PAIN PER EMAR. PT CONTINUES TO HAVE SEVERE ITCHING. PT SEEMS TO BE MORE WITHDRAWN TONIGHT. TREATED PAIN PER EMAR. Q2-3 HOUR REPOSITIONING.
[2023-06-05 16:11] LABS: Influenza A, PCR NEGATIVE (NEGATIVE); Influenza B, PCR NEGATIVE (NEGATIVE); Resp Syncytial Virus, PCR NEGATIVE (NEGATIVE); SARS-Cov-2 (COVID-19) PCR, MMC NEGATIVE (NEGATIVE)
--- NOTE | 2023-06-05 16:45 | NUR ---
SHIFT SUMMARY PATIENT HAS HAD NO ACUTE EVENTS THIS SHIFT. PATIENT HAS BEEN SLEEPING MOST OF SHIFT. PATIENTS FAMILY HAS VISITING MOST OF THE DAY. PATIENT IS AWAITING DISCHARGE. PATIENT HAS DENIED NEEDING PAIN MEDICATION THIS SHIFT. PATIENT HAS NOT HAD ANY SOB, NAUSEA OR VOMITTING THIS SHIFT. BED IN LOCKED AND LOWEST POSITION.
--- NOTE | 2023-06-06 04:25 | NUR ---
SHIFT SUMMARY PT IS ALERT AND ORIENTED X1-2. FORGETFUL, CALM AND COOPERATIVE. TREATED PAIN PER EMAR. PT CONTINUES TO HAVE SEVERE ITCHING. Q2-3 HOUR REPOSITIONING. NO ACUTE CHANGES OVERNIGHT. BED IS THE LOWEST POSITION WITH CALL LIGHT IN REACH.
--- NOTE | 2023-06-06 13:14 | NUR ---
Spiritual Care Visit Attempted. Pt. is a comfort care Pt. and is soundly somnolent when I enter the room. Pt. has no visitors. Though the Pt. doesn't respond to my visit, a blessing for the Pt. is given.
--- NOTE | 2023-06-06 16:46 | NUR ---
THE PATIENT RESPONDED TO VOICE, KNEW AND TALKED ABOUT HER NAME, PATIENT'S DAUGHTER VISITED TODAY, AND MENTIONED POSSIBLY, SANJEEV WILKERSON, THE PATIENT REPORTED PAIN AND WAS MEDICATED PER /JAN. THE PATIENT HAS SLEPT A LARGE PART OF THE SHIFT, HAS BEEN REPOSITIONED AND HAD A BED BATH.
--- NOTE | 2023-06-07 04:33 | NUR ---
SHIFT SUMMARY ADMITTED FOR RHABDOMYOLYSIS. DNR CODE. SHE IS ON COMFORT CARE. PLAN IS FOR DC WITH HOSPICE. CARE MANAGEMENT IS ASSISTING WITH THIS CASE AND FUTURE PLAN OF CARE. SHE IS ON 2 LPM O2. SCOPALAMINE PATCH IN PLACE FOR EXCESSIVE SECRETIONS. SHE IS INCONTINENT AND ON BEDREST. HER APPETITE IS POOR. SHE HAS DENIED PAIN THIS SHIFT. SHE HAS BEEN SLEEPING QUIETLY. NO SIGNS OR SYMPTOMS OF DISTRESS OR DISCOMFORT NOTED THUS FAR. WE HAVE BEEN REPOSITIONING HER Q2 THROUGHOUT SHIFT. PT HAS BEEN ASSESSED FOR FIRE SAFETY.
--- NOTE | 2023-06-07 12:19 | NUR ---
Spiritual Care visit. Pt. is a comfort care Pt. and is minisally responsive. Pts. daughter is present and welcomed my visit. Pt. displays evidence of a difficulty understanding and being [place]. Offered encouaragement to both Pt. and daughter. Prayed for both. Daughter verbalized gratitude for the spiritual care visit.
--- NOTE | 2023-06-07 12:26 | NUR ---
Pt's daughter stopped by this afternoon on her way to pt's room. She states she continues working on getting pt qualified for medicaid. States a case-worker would be coming by tomorrow, 06/08 to assess pt. For the last couple days, pt hasn't been awake enough to speak to visitors, but she always does "perk up" when her daughter arrives. Palliative care will remain available for supportive visits.
--- NOTE | 2023-06-07 18:01 | NUR ---
SHIFT NOTE PT RESTING QUIETLY. REFUSED LIQUIDS. ORAL CARE DONE. LIPS PEELING. CREAM APPLIED. DAUGHTER VISITED BRIEFLY. CONTINUE POC.
--- NOTE | 2023-06-08 04:52 | NUR ---
SHIFT SUMMARY ADMITTED FOR RHABDO. DNR CODE. PLAN IS FOR DC W/HOSPICE. ARRANGEMENTS BEING PLANNED BY FAMILY AND CARE MANAGEMENT. SCOPALAMINE PATCH IN PLACE. 2 LPM O2 VIA NC. SHE IS ON BEDREST, Q 2 HR REPOSITIONING. NO IV ACCESS NEEDED. SHE IS INCONTINENT. SHE DOES RESPOND WITH ONE WORD, YES OR NO, TO QUESTIONS THIS SHIFT. ON COMFORT CARE. FIRE SAFETY AND IGNITION RISK HAS BEEN ASSESSED AND DISCUSSED WITH THIS PATIENT.
--- NOTE | 2023-06-08 14:21 | NUR ---
"Spiritual Care Visit | Comfort Care Pt. is non-responsive and displays evidence of shallow breathing. There are no guests present and no evidence that the Pt. knows this cloth weaver is in the room. This cloth weaver prayed a prayer of blessing overthe Pt. before I departed."
--- NOTE | 2023-06-08 19:48 | NUR ---
SHIFT SUMMARY PATIENT ON COMFORT CARE. PATIENT OCCASIONALLY ABLE TO ANSWER WITH ONE OR 2 WORD RESPONSES. PATIENT MOANS AND SHALLOW BREATHING WHEN UNDISTURBED. PATIENT REPOSITIONED EVERY 2 HOURS. FOOD OFFERED, PATIENT SHOWS NO INTEREST IN EATING. MOUTH MOISTENED AND CHAP STICK APPLIED TO LIPS NEEDED. CASE WORKERS HERE TO SEE PATIENT TO PROCESS ABILITY TO QUALIFY FOR MEDICAID FOR HOSPICE PLACEMENT.
--- NOTE | 2023-06-09 06:04 | NUR ---
PT IS WITHDRAWN BUT PLEASANT. MAKES NEEDS KNOWN. REQUESTED PAIN MEDS X1 PRIOR TO 0600. AOX4. Q2 TURN ASSISTANCE PROVIDED. BREATHING IS SHALLOW AND RATE IS INCREASED. APPEARS COMFORTABLE MOST OF SHIFT.
[2023-06-09] MEDS ORDERED: ROXICODONE INTENSOL SL (13:44)
[2023-06-09 14:23] LABS: Influenza A, PCR NEGATIVE (NEGATIVE); Influenza B, PCR NEGATIVE (NEGATIVE); Resp Syncytial Virus, PCR NEGATIVE (NEGATIVE); SARS-Cov-2 (COVID-19) PCR, MMC NEGATIVE (NEGATIVE)
--- NOTE | 2023-06-09 15:38 | NUR ---
SHIFT SUMMARY AND DISCHARGE PATIENT MORE AWAKE TODAY AND ABLE TO ANSWER SOME QUESTIONS WITH 1-3 WORD RESPONSES. PATIENT CONTINUES TO HAVE R SIDED FACIAL DROOP AND STIFFNESS OF EXTREMETIES. MEPILEX DRESSING ON R HEEL. HEELS FLOOTED. PATIENT TRANSPORTED TO [facility] BY MEDICAL TRANSPORT. PATIENT ON COMFORT CARE AND HOSPICE TO FOLLOW UP WITH PATIENT. PATIENT HAS CHRONIC NECK AND BACK PAIN. PATIENT MEDICATED WITH PAIN MEDS NEEDED FOR COMFORT.
== END 2023-06-09 15:19 | disposition hospice, home (50) | DRG 64 ==
LOC: ER 15:06 → PCU 15:07 → MEDS 15:07 → PCU 05-29 01:07 → MEDS 05-29 15:27 → PCU 05-31 19:36 → MEDS 05-31 21:15 → ENPENDDIS 06-02 13:18 → MEDS 06-09 15:19
PROVIDERS: Family Medicine; Internal Medicine; Student in an Organized Health Care Education/Training Program; ADMIT Student in an Organized Health Care Education/Training Program
DX: I63.9 Cerebral infarction, unspecified (principal); G93.41 Metabolic encephalopathy; M62.82 Rhabdomyolysis; I13.0 Hypertensive heart and chronic kidney disease with heart failure and stage 1 through stage 4 chronic kidney disease, or unspecified chronic kidney disease; N39.0 Urinary tract infection, site not specified; N17.9 Acute kidney failure, unspecified; I44.2 Atrioventricular block, complete; I50.32 Chronic diastolic (congestive) heart failure; Z51.5 Encounter for palliative care; Z66 Do not resuscitate; Z20.822 Contact with and (suspected) exposure to COVID-19; R29.810 Facial weakness; E78.00 Pure hypercholesterolemia, unspecified; I25.10 Atherosclerotic heart disease of native coronary artery without angina pectoris; I08.3 Combined rheumatic disorders of mitral, aortic and tricuspid valves; N18.30 Chronic kidney disease, stage 3 unspecified; K21.9 Gastro-esophageal reflux disease without esophagitis; I44.7 Left bundle-branch block, unspecified; I44.0 Atrioventricular block, first degree; G89.29 Other chronic pain; G47.00 Insomnia, unspecified; F03.90 Unspecified dementia, unspecified severity, without behavioral disturbance, psychotic disturbance, mood disturbance, and anxiety; Z90.49 Acquired absence of other specified parts of digestive tract; Z90.710 Acquired absence of both cervix and uterus; Z88.0 Allergy status to penicillin; Z88.8 Allergy status to other drugs, medicaments and biological substances; Z79.891 Long term (current) use of opiate analgesic; Z79.899 Other long term (current) drug therapy; Z79.2 Long term (current) use of antibiotics
CPT/HCPCS: 0241U; 36415; 70450; 70486; 72125; 80053; 81001; 82550; 82947; 83735; 85025; 87077; 87086; 87186; 92526; 92610; 93005; 93010; 93306; 94640; 94664; 94760; 96361; 96361-59; 96372; 96374-59; 96375-59; 97110; 97116; 97129; 97162; 97166; 97530; 99285-25; A9270; G0378; J1644; J1956; J7030; J7120